=== PATIENT | female | born 1965 | race African-American/Black ===

== ENCOUNTER 2024-11-15 00:05 | Emergency (ER) | payer MEDICARE, MEDICAID ==
[~2024-11-15] VITALS: Ht 175.3 cm; Wt 130.0 kg
[~2024-11-15 00:05] MED LIST: AMLO5TAB88 PO; ATOR10TA69 PO; DULA0.75 SQ; FINE10TA PO; FOLI0.8T23 PO; INSU100V36 SQ; LOSA100T33 PO; METF-416 PO; MONT-39 PO
[2024-11-15 00:30] VITALS: O2SAT 97
[2024-11-15] MEDS: IBUPROFEN 800MG TABLET PO ONE (02:31)
[2024-11-15] MEDS: ACETAMINOPHEN 325MG TABLET PO ONE (02:31)
[2024-11-15 03:35] LABS: BASOPHILS % 0.8 % (0.0-2.0); EOSINOPHILS % 1.3 % (0.0-5.0); HEMATOCRIT. 32.7 % (36.0-48.0); HEMOGLOBIN. 10.4 g/dL (12.0-16.0); LYMPHOCYTES % 36.9 % (20.0-50.0); MEAN PLATELET VOLUME 8.8 fl (7.4-10.4); MONOCYTES % 6.9 % (2.0-8.0); NEUTROPHILS % 54.1 % (40.0-76.0); PLATELET 214 x1000/uL (130-400); RED BLOOD CELL COUNT 3.99 mill/uL (4.2-5.4); RED CELL DISTRIBUTION WIDTH 17.0 % (11.6-14.6)
[2024-11-15 03:47] LABS: INR 0.9; UREA NITROGEN BLOOD 35 mg/dL (9-23)
[2024-11-15 03:48] LABS: TROPONIN I HIGH SENSITIVITY 6 ng/L (3.0-34)
[2024-11-15 04:03] LABS: CLARITY URINE CLEAR (CLEAR); COLOR URINE YELLOW (YELLOW); GLUCOSE URINE NEGATIVE (NEGATIVE); KETONES URINE NEGATIVE (NEGATIVE); LEUKOCYTE ESTERASE URINE NEGATIVE (NEGATIVE); NITRITE URINE NEGATIVE (NEGATIVE); OCCULT BLOOD URINE NEGATIVE (NEGATIVE); PH URINE 5.0 (4.5-8.0); PROTEIN URINE TRACE (NEGATIVE); SPECIFIC GRAVITY URINE 1.016 (1.005-1.030); UROBILINOGEN URINE 0.2 E.U./dL (0.2-1.0)
[2024-11-15 04:04] LABS: CREATININE 1.6 mg/dL (0.6-1.0)
[2024-11-15] MEDS ORDERED: TOPUD MT (04:19)
[2024-11-15] MEDS ORDERED: IBUP-1525 MT (04:19)
[2024-11-15 04:34] VITALS: BP 144/66; PULSE 72; RESP 16; TEMP 36.7; O2SAT 95
[2024-11-15 04:59] LABS: SQUAMOUS EPITHELIAL CELL URINE FEW /lpf (RARE/1+)
[2024-11-15 05:03] LABS: BACTERIA URINE NONE SEEN; RBC URINE 0-2 /hpf (0-2); WBC URINE 0-2 /hpf (0-2)
== END 2024-11-15 04:37 | disposition home or self-care (01) ==
LOC: ER 00:05
DX: M79.671 Pain in right foot (principal); M79.604 Pain in right leg; M79.89 Other specified soft tissue disorders; E11.9 Type 2 diabetes mellitus without complications; Z79.84 Long term (current) use of oral hypoglycemic drugs; Z79.899 Other long term (current) drug therapy; Z98.890 Other specified postprocedural states
CPT/HCPCS: 36415; 73552; 73590; 73630; 80048; 81003; 84484; 85025; 93005; 99285